=== PATIENT | male | born 1990 | race Caucasian/White ===

== ENCOUNTER 2021-03-08 11:35 | Emergency (ER) | payer SELFPAY ==
[~2021-03-08] VITALS: Ht 170.2 cm; Wt 104.0 kg
[2021-03-08] MEDS ORDERED: MED4 MT (12:09)
[2021-03-08] MEDS ORDERED: CYCL5TAB MT (12:09)
[2021-03-08] MEDS ORDERED: KETOROLAC 30MG/ML VIAL IM ONE (12:15)
[2021-03-08 12:17] VITALS: BP 182/112
== END 2021-03-08 16:42 | disposition home or self-care (01) ==
LOC: ER 12:48
DX: S39.012A Strain of muscle, fascia and tendon of lower back, initial encounter (principal); X58.XXXA Exposure to other specified factors, initial encounter; Y93.89 Activity, other specified; Y92.89 Other specified places as the place of occurrence of the external cause; Y99.8 Other external cause status; Z79.899 Other long term (current) drug therapy
CPT/HCPCS: 96372; 99283; J1885